=== PATIENT | male | born 1935 | race Caucasian/White ===

== ENCOUNTER 2016-04-27 17:02 | Inpatient (IN) | payer MEDICARE, OTHER ==
[2016-04-27] MEDS ORDERED: ACETAMINOPHEN 325 MG TABLET PO PRN (17:26)
[2016-04-27] MEDS ORDERED: ZOLPIDEM TARTRATE 5 MG TABLET PO PRN (17:26)
[2016-04-27] MEDS ORDERED: MAG-AL PLUS XS SUSP 30 ML UDC PO PRN (17:26)
[2016-04-27] MEDS: VANCOMYCIN PO SCH ×2 (18:39→22:12)
[2016-04-27] MEDS: POTASSIUM CHLORIDE/NS 1,000 ML IV SCH (18:39)
[2016-04-27] MEDS ORDERED: WATER IRRIG 1,000 ML BOTTLE ONE (18:52)
[2016-04-27] MEDS ORDERED: VANCOMYCIN HCL 1,000 MG/20 ML VIAL ONE (18:52)
--- NOTE | 2016-04-28 05:41 | HISTORY & PHYSICAL ---
DATE OF ADMISSION: 04/27/16 ADMITTING DIAGNOSIS: Diarrhea, intractable, with dehydration. HISTORY OF PRESENT ILLNESS: The patient is a 80-year-old male, with a recent history of Campylobacter infection. His problems began in March of 2016 when he had acute sinusitis treated with Augmentin. He came to the office on with frequent diarrhea and was thought to possibly have Clostridium difficile diarrhea, but in fact turned out to have fecal leukocytes and Campylobacter. He was treated with ciprofloxacin for 5 days, because I was concerned about the potential for further inducing risk of Clostridium difficile with another antibiotic, I also treated him with Flagyl 3 times daily for 5 days. He returned to the office today with complaints of 10-12 times daily diarrhea for the past few days, with abdominal pain only when about to pass a bowel movement. He was slightly nauseated and had malaise and was unable to eat and drink. Laboratory studies were obtained from the clinic and he was found to have a white count of 22,000, and to appear dehydrated therefore he was admitted for hydration and a stool sample was obtained. Stool sample results have returned for Clostridium difficile and indeed he now does have that. He has had no blood in the stool and overall has been functioning fairly well. ALLERGIES: None known. PAST MEDICAL HISTORY 1. GERD. 2. Hypertension. 3. History of colon polyps. 4. History of prostate cancer status post robotic prostatectomy with subsequent increase in his PSA. 5. Osteoarthritis. 6. Hyperlipidemia. MEDICATIONS AT HOME Aleve 220 mg 2 daily in the morning. Aspirin 81 mg daily. Atorvastatin 20 mg at h.s. CoQ10 100 mg q.o.d. Fish oil 1200 mg every other day. Quinapril hydrochlorothiazide 20/25 mg daily. Vitamin D 1000 IU daily. SOCIAL HISTORY: He is . 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 He has 3 grown children. He is a former pipe smoker who quit 25 years ago. He rarely drinks any alcohol. FAMILY HISTORY: Father at 78 with an AR. Mother at 84 with a history of breast cancer. Sister is in a correction at age 84 with dementia. He has a son with hypertension. REVIEW OF SYSTEMS: Generally he feels fatigue and has malaise. No headaches, no blurred vision. His mouth is a little dry. No chest pain. No shortness of breath. No palpitations. Diarrhea and abdominal discomfort as described above. No neurological problems. PHYSICAL EXAMINATION VITAL SIGNS: Temperature 37, blood pressure 117/62, pulse 80, respirations 18. O2 saturation 95% on room air. GENERAL: The patient is alert, appears comfortable. HEENT: Extraocular movements are intact. Pupils are equal, round and reactive to light. Oropharynx is slightly dry. NECK: Reveals no jugular venous distention, no bruits, no adenopathy. LUNGS: Clear bilaterally. CARDIOVASCULAR: Regular rate and rhythm without murmurs, rubs or gallops appreciated. ABDOMEN: Soft, nontender. Bowel sounds hyperactive. No organomegaly. No masses noted. EXTREMITIES: Calves are soft. Dorsalis pedis pulses are 2+. NEUROLOGIC: He is well oriented. Cranial nerves intact. Motor strength 5/5. Deep tendon reflexes 1+ and symmetrical. Gait is normal. DATA: CBC shows a white count of 22,300 with a left shift, 92% neutrophils, hemoglobin 16, hematocrit 47. Chemistry is unremarkable including hepatic enzymes, amylase and lipase are normal. Stool is negative for occult blood, positive for fecal leuks, positive for Clostridium difficile by PCR. Other studies are pending at this time. ASSESSMENT AND PLAN 1. Clostridium difficile colitis, antibiotic induced. Since I have already treated him with Flagyl as a failed prophylactic measure, I am going to go straight to vancomycin oral liquid at 250 mg 4 times a day. The patient will continue on a BRAT diet and we will hydrate him. 2. Hypertension. The patients blood pressure has been low and we will resume his medications when his blood pressure gets to its normal levels. 3. Hyperlipidemia. Hold his atorvastatin for now. 4. DVT prophylaxis. Will use SCDs at this time and if the patients stay becomes more prolonged will start Lovenox. MICHAEL
[2016-04-28] MEDS: VANCOMYCIN PO SCH ×4 (05:55→21:39)
[2016-04-28 06:10] LABS: BASOPHIL# 0.3 X 10^3uL (0.0-0.1); BASOPHILS 1.5 % (0.0-2.0); EOSINOPHILS 0.9 % (0.0-6.0); EOSINOPHILS# 0.2 X 10^3uL (0.0-0.4); HEMATOCRIT 42.8 % (42.0-54.0); HEMOGLOBIN 14.2 g/dL (14.0-18.0); LYMPHOCYTES 3.7 % (20.0-40.0); LYMPHOCYTES# 0.7 X 10^3uL (0.8-3.8); MEAN CORPUS. HGB CONCENTRATION 33.2 g/dL (32.0-36.0); MEAN CORPUSCULAR HEMOGLOBIN 29.9 pg (29.0-35.0); MEAN PLATELET VOLUME 8.4 fL (7.4-10.4); MONOCYTES 6.7 % (2.0-10.0); MONOCYTES# 1.2 X 10^3uL (0.2-1.0); NEUTROPHILS# 15.6 X 10^3uL (2.6-6.7); PLATELET COUNT 340 X 10^3uL (130-440); RED BLOOD COUNT 4.75 X 10^6uL (4.20-6.10); RED CELL DISTRIBUTION WIDTH 12.8 % (11.5-14.5)
[2016-04-28 06:25] LABS: ALBUMIN 3.1 g/dL (3.5-5.0); ALKALINE PHOSPHATASE 53 U/L (38-126); ALT 36 U/L (21-72); AST 21 U/L (17-59); BILIRUBIN, DIRECT 0.1 mg/dL (0.0-0.4); BILIRUBIN, TOTAL 0.9 mg/dL (0.2-1.3); BLOOD UREA NITROGEN 17 mg/dL (9-20); CALCIUM 8.3 mg/dL (8.4-10.2); CHLORIDE 106 mmol/L (98-107); CREATININE 0.9 mg/dL (0.7-1.3); EST GLOMERULAR FILTRATION RATE > 60 mL/min; GLUCOSE 110 mg/dL (70-100); POTASSIUM 3.9 mmol/L (3.5-5.1); SODIUM 136 mmol/L (137-145); TOTAL PROTEIN 5.7 g/dL (6.3-8.2)
[2016-04-28 06:29] LABS: NEUTROPHILS 87.2 % (54.0-75.0)
[2016-04-28] MEDS: POTASSIUM CHLORIDE/NS 1,000 ML IV SCH (09:54)
--- NOTE | 2016-04-28 10:05 | PROGRESS NOTE: IM APSO ---
Assessment and Plan - Date of Encounter Date of Encounter: 04/28/16 (1) Clostridium difficile colitis Status: Acute Assessment and plan: Antibiotic induced. Patient was treated with Augmentin in March for sinusitis. In April he developed diarrhea with campylobacter positivity, and was treated with Cipro AND Metronidazole, because of concerns for potential C. Difficile colitis. Stool testing for C. Difficile was negative at that time. Since he has developed C. Difficile diarrhea in spite of that effort, he was started on oral Vancomycin immediately, and not Metronidazole. Patient has an elevated WBC, and continues to have diarrhea. I spoke with Dr. Ruiz of GI who agrees with current effort. Current Visit: Yes (2) Campylobacter antigen positive Status: Acute Assessment and plan: This is concerning after the patient was already treated with Ciprofloxacin. Discussed with Dr. Ruiz of GI, and Azithromycin was started this morning. Continue efforts with hydration. Source of Campylobacter unknown. Current Visit: Yes (3) Hypertension Status: Chronic Assessment and plan: Patient's medications are being held due to dehydration, and his blood pressure is thus far controlled. Current Visit: Yes - Time Spent With Patient Total time spent with greater than 50% in coordination of care (as documented) at patient's floor/unit and/or counseling patient: 16-24 minutes Estimated anticipated discharge: Several days. IM: PN Subjective Interval history: Continues to have severe diarrhea, and is fatigued. Of concern is that he is still testing positive for Campylobacter, as well as C. Difficile, in spite of treatment with Ciprofloxacin last week, for 5 days. Initially, his diarrhea cleared with that treatment. No fever or chills. Patient is receiving IVF because of diarrhea, and is eating a BRAT diet. General: fatigue, malaise, no fever, no chills HEENT: no headache Cardiovascular: no chest pain Respiratory: no SOB Gastrointestinal: abdominal pain (only cramping with BM), diarrhea Genitourinary: no dysuria Musculoskeletal: no pain IM: PN Objective Exam - I&O/Vital Signs I&O: Intake & Output 04/27/16 04/28/16 04/28/16 21:59 05:59 13:59 Intake Total 1050 Balance 1050 Weight 74.843 kg Intake: IV 650 Right Antecubital 650 Oral 400 Other: Stool Size Moderate Stool Characteristics Soft Soft Liquid Liquid Voiding Method Toilet # Bowel Movements 6 Vital Signs: Last Vital Signs Temp 36.6 C 04/28/16 07:00 Pulse 82 04/28/16 07:00 Resp 16 04/28/16 07:00 BP 112/69 04/28/16 07:00 Pulse Ox 94 04/28/16 07:00 Oxygen Delivery Method Room Air - Constitutional General appearance: Present: average body habitus - Head Head exam: Present: normal inspection - Eye Eye exam: Absent: conjunctival injection, scleral icterus Pupils: Present: PERRL - ENT ENT exam: Present: mucous membranes moist - Neck Neck exam: Present: full ROM - Respiratory Respiratory exam: Present: CTAB - Cardiovascular Cardiovascular exam: Present: RRR - GI/Abdominal GI/Abdominal exam: Present: hyperactive bowel sounds, soft. Absent: organomegaly, tenderness - Extremities Exam Extremities exam: Absent: calf tenderness, edema, tenderness - Neurological Exam Neurological exam: Present: CN II-XII intact, oriented X3 - Lab Labs: Laboratory Last Values WBC 18.0 X 10^3uL (3.9-10.7) H 04/28/16 05:00 RBC 4.75 X 10^6uL (4.20-6.10) 04/28/16 05:00 Hgb 14.2 g/dL (14.0-18.0) 04/28/16 05:00 Hct 42.8 % (42.0-54.0) 04/28/16 05:00 MCV 90.0 fL (84.0-102.0) 04/28/16 05:00 MCH 29.9 pg (29.0-35.0) 04/28/16 05:00 MCHC 33.2 g/dL (32.0-36.0) 04/28/16 05:00 RDW 12.8 % (11.5-14.5) 04/28/16 05:00 Plt Count 340 X 10^3uL (130-440) 04/28/16 05:00 MPV 8.4 fL (7.4-10.4) 04/28/16 05:00 Neutrophils % 87.2 % (54.0-75.0) H 04/28/16 05:00 Lymphocytes % 3.7 % (20.0-40.0) L 04/28/16 05:00 Eosinophils % 0.9 % (0.0-6.0) 04/28/16 05:00 Basophils % 1.5 % (0.0-2.0) 04/28/16 05:00 Neutrophils # 15.6 X 10^3uL (2.6-6.7) H 04/28/16 05:00 Lymphocytes # 0.7 X 10^3uL (0.8-3.8) L 04/28/16 05:00 Monocytes 6.7 % (2.0-10.0) 04/28/16 05:00 Monocytes # 1.2 X 10^3uL (0.2-1.0) H 04/28/16 05:00 Eosinophils # 0.2 X 10^3uL (0.0-0.4) 04/28/16 05:00 Basophils # 0.3 X 10^3uL (0.0-0.1) H 04/28/16 05:00 Sodium 136 mmol/L (137-145) L 04/28/16 05:00 Potassium 3.9 mmol/L (3.5-5.1) 04/28/16 05:00 Chloride 106 mmol/L (98-107) 04/28/16 05:00 Carbon Dioxide 23 mmol/L (22-30) 04/28/16 05:00 BUN 17 mg/dL (9-20) 04/28/16 05:00 Creatinine 0.9 mg/dL (0.7-1.3) 04/28/16 05:00 GFR Calculation > 60 mL/min 04/28/16 05:00 Glucose 110 mg/dL (70-100) H 04/28/16 05:00 Calcium 8.3 mg/dL (8.4-10.2) L 04/28/16 05:00 Total Bilirubin 0.9 mg/dL (0.2-1.3) 04/28/16 05:00 Direct Bilirubin 0.1 mg/dL (0.0-0.4) 04/28/16 05:00 AST 21 U/L (17-59) 04/28/16 05:00 ALT 36 U/L (21-72) 04/28/16 05:00 Alkaline Phosphatase 53 U/L (38-126) 04/28/16 05:00 Total Protein 5.7 g/dL (6.3-8.2) L 04/28/16 05:00 Albumin 3.1 g/dL (3.5-5.0) L D 04/28/16 05:00 Quality Questions - VTE Prophylaxis Assessment VTE Present on Admission?: No Patient at risk for venous thromboembolism?: Yes VTE Risk Level: High Risk VTE Medical Contraindication: N/A-VTE Prophylaxis ordered (3) Hypertension Qualifiers: Hypertension type: essential hypertension Qualified Code(s): I10 - Essential (primary) hypertension
[2016-04-28] MEDS: AZITHROMYCIN 250 MG TABLET PO SCH (11:17)
[2016-04-29] MEDS ORDERED: VANCOMYCIN PO SCH
[2016-04-29] MEDS: VANCOMYCIN PO SCH ×4 (05:35→21:07)
[2016-04-29 06:28] LABS: BASOPHILS 0.4 % (0.0-2.0); EOSINOPHILS 2.5 % (0.0-6.0); EOSINOPHILS# 0.3 X 10^3uL (0.0-0.4); HEMATOCRIT 40.7 % (42.0-54.0); HEMOGLOBIN 13.3 g/dL (14.0-18.0); LYMPHOCYTES 6.6 % (20.0-40.0); LYMPHOCYTES# 0.8 X 10^3uL (0.8-3.8); MEAN CORPUS. HGB CONCENTRATION 32.6 g/dL (32.0-36.0); MEAN PLATELET VOLUME 8.7 fL (7.4-10.4); MONOCYTES 8.9 % (2.0-10.0); NEUTROPHILS 81.6 % (54.0-75.0); NEUTROPHILS# 9.4 X 10^3uL (2.6-6.7); PLATELET COUNT 318 X 10^3uL (130-440); RED BLOOD COUNT 4.43 X 10^6uL (4.20-6.10); RED CELL DISTRIBUTION WIDTH 12.9 % (11.5-14.5); WHITE BLOOD COUNT 11.5 X 10^3uL (3.9-10.7)
[2016-04-29 06:33] LABS: A/G RATIO 1.1; ALBUMIN 2.7 g/dL (3.5-5.0); ALKALINE PHOSPHATASE 45 U/L (38-126); ALT 31 U/L (21-72); AST 15 U/L (17-59); BILIRUBIN, TOTAL 0.6 mg/dL (0.2-1.3); BLOOD UREA NITROGEN 13 mg/dL (9-20); CALCIUM 8.3 mg/dL (8.4-10.2); CHLORIDE 109 mmol/L (98-107); CREATININE 0.9 mg/dL (0.7-1.3); EST GLOMERULAR FILTRATION RATE > 60 mL/min; GLUCOSE 88 mg/dL (70-100); POTASSIUM 3.9 mmol/L (3.5-5.1); SODIUM 138 mmol/L (137-145); TOTAL PROTEIN 5.2 g/dL (6.3-8.2)
[2016-04-29] MEDS: AZITHROMYCIN 250 MG TABLET PO SCH (09:33)
--- NOTE | 2016-04-29 09:47 | PROGRESS NOTE: IM APSO ---
Assessment and Plan - Date of Encounter Date of Encounter: 04/29/16 (1) Clostridium difficile colitis Status: Acute Assessment and plan: Seems to be improving, stools are formed, elevation in WBC is decreasing. Patient may be able to go home on his Vancomycin preparation in the next day or so. Current Visit: Yes (2) Campylobacter antigen positive Status: Acute Assessment and plan: Seems to be responding to the Azithromycin, patient is feeling better. Current Visit: Yes (3) Hypertension Status: Chronic Assessment and plan: Remains controlled. Current Visit: Yes - Time Spent With Patient Total time spent with greater than 50% in coordination of care (as documented) at patient's floor/unit and/or counseling patient: 16-24 minutes Estimated anticipated discharge: Several days. IM: PN Subjective Interval history: Patient feels better today. Still with frequent diarrhea, but not as watery. No fever or chills, WBC now decreased to 11,500. General: no fever, no chills HEENT: no headache Cardiovascular: no chest pain Respiratory: no SOB Gastrointestinal: abdominal pain (only cramping with BM), diarrhea Genitourinary: no dysuria Musculoskeletal: no pain IM: PN Objective Exam - I&O/Vital Signs I&O: Intake & Output 04/28/16 04/29/16 04/29/16 21:59 05:59 13:59 Intake Total 1400 300 Output Total 100 200 Balance 1300 100 Intake: IV 900 Left Forearm 900 Oral 500 300 Output: Urine 100 200 Other: Urine Appearance Clear Clear Urine Color Yellow Yellow Stool Size Moderate Stool Characteristics Soft Liquid Voiding Method Toilet Urinal # Voids 5 5 # Bowel Movements 5 Vital Signs: Last Vital Signs Temp 36.6 C 04/29/16 07:00 Pulse 70 04/29/16 07:00 Resp 14 04/29/16 07:00 BP 112/62 04/29/16 07:00 Pulse Ox 94 04/29/16 07:00 Oxygen Delivery Method Room Air - Constitutional General appearance: Present: average body habitus - Head Head exam: Present: normal inspection - Eye Eye exam: Absent: conjunctival injection, scleral icterus Pupils: Present: PERRL - ENT ENT exam: Present: mucous membranes moist - Neck Neck exam: Present: full ROM - Respiratory Respiratory exam: Present: CTAB - Cardiovascular Cardiovascular exam: Present: RRR - GI/Abdominal GI/Abdominal exam: Present: normal bowel sounds, soft. Absent: organomegaly, tenderness - Extremities Exam Extremities exam: Absent: calf tenderness, edema, tenderness - Neurological Exam Neurological exam: Present: CN II-XII intact, oriented X3 - Allied Health Notes Allied health notes reviewed: nursing - Lab Labs: Laboratory Last Values WBC 11.5 X 10^3uL (3.9-10.7) H 04/29/16 05:35 RBC 4.43 X 10^6uL (4.20-6.10) 04/29/16 05:35 Hgb 13.3 g/dL (14.0-18.0) L 04/29/16 05:35 Hct 40.7 % (42.0-54.0) L 04/29/16 05:35 MCV 92.0 fL (80.0-100.0) 04/29/16 05:35 MCH 30.0 pg (29.0-35.0) 04/29/16 05:35 MCHC 32.6 g/dL (32.0-36.0) 04/29/16 05:35 RDW 12.9 % (11.5-14.5) 04/29/16 05:35 Plt Count 318 X 10^3uL (130-440) 04/29/16 05:35 MPV 8.7 fL (7.4-10.4) 04/29/16 05:35 Neutrophils % 81.6 % (54.0-75.0) H 04/29/16 05:35 Lymphocytes % 6.6 % (20.0-40.0) L 04/29/16 05:35 Eosinophils % 2.5 % (0.0-6.0) 04/29/16 05:35 Basophils % 0.4 % (0.0-2.0) 04/29/16 05:35 Neutrophils # 9.4 X 10^3uL (2.6-6.7) H 04/29/16 05:35 Lymphocytes # 0.8 X 10^3uL (0.8-3.8) 04/29/16 05:35 Monocytes 8.9 % (2.0-10.0) 04/29/16 05:35 Monocytes # 1.0 X 10^3uL (0.2-1.0) 04/29/16 05:35 Eosinophils # 0.3 X 10^3uL (0.0-0.4) 04/29/16 05:35 Basophils # 0.0 X 10^3uL (0.0-0.1) 04/29/16 05:35 Sodium 138 mmol/L (137-145) 04/29/16 05:35 Potassium 3.9 mmol/L (3.5-5.1) 04/29/16 05:35 Chloride 109 mmol/L (98-107) H 04/29/16 05:35 Carbon Dioxide 24 mmol/L (22-30) 04/29/16 05:35 BUN 13 mg/dL (9-20) 04/29/16 05:35 Creatinine 0.9 mg/dL (0.7-1.3) 04/29/16 05:35 GFR Calculation > 60 mL/min 04/29/16 05:35 Glucose 88 mg/dL (70-100) 04/29/16 05:35 Calcium 8.3 mg/dL (8.4-10.2) L 04/29/16 05:35 Magnesium 2.0 mg/dL (1.6-2.3) 04/29/16 05:35 Total Bilirubin 0.6 mg/dL (0.2-1.3) 04/29/16 05:35 Direct Bilirubin 0.1 mg/dL (0.0-0.4) 04/28/16 05:00 AST 15 U/L (17-59) L 04/29/16 05:35 ALT 31 U/L (21-72) 04/29/16 05:35 Alkaline Phosphatase 45 U/L (38-126) 04/29/16 05:35 Total Protein 5.2 g/dL (6.3-8.2) L 04/29/16 05:35 Albumin 2.7 g/dL (3.5-5.0) L 04/29/16 05:35 Albumin/Globulin Ratio 1.1 04/29/16 05:35 (3) Hypertension Qualifiers: Hypertension type: essential hypertension Qualified Code(s): I10 - Essential (primary) hypertension
[2016-04-29] MEDS: POTASSIUM CHLORIDE/NS 1,000 ML IV SCH (16:26)
--- NOTE | 2016-04-29 16:51 | DC SUMMARY: IM Note ---
Discharge Summary: IM/Peds Provider: Date of Admission: 04/27/16 Admitting Provider: CLAIRE NJ MD Attending Provider: CLAIRE NJ MD Discharging Provider: CLAIRE NJ MD Primary Care Provider: Discharge Date: 04/29/16 - Diagnosis (1) Clostridium difficile colitis Status: Acute (2) Campylobacter antigen positive Status: Acute (3) Hypertension Status: Chronic Qualifiers: Hypertension type: essential hypertension Qualified Code(s): I10 - Essential (primary) hypertension Hospital Course: Patient was admitted from the clinic with multiple times per day diarrhea and a WBC of 22,000, with stool sample testing from the clinic positive for C. Difficile Toxin. Later on the day of admission laboratory studies confirmed a positive Campylobacter assay. The patient had been treated for Campylobacter about 10 days prior, with Ciprofloxacin for 5 days, to which Flagyl had been added in the (futile) hope of avoiding C. Difficile diarrhea. Since the Campylobacter had not cleared, I spoke with Dr. Ruiz of GI, and he advised that we retreat. Azithromycin was chosen. By the day of discharge, patient was feeling much better, and his white blood cell count was normalized. His stools had become formed, and frequency much reduced. He was discharged on a bland diet, and I discussed with him the avoidance of dairy, citrus, caffeine and red meat until feeling better, with gradual reintroduction of all foods as he tolerates them. - Time Spent with Patient Total time spent providing and/or coordinating discharge services: Time with patient DS: Greater than 30 minutes Discharge - Patient/Caregiver Discharge Instructions Activity Level: As tolerated Diet: [place], avoid heavy meals, limit citrus, caffeine, dairy and red meat until feeling normal. Follow up: CLAIRE NJ MD [Primary Care Provider] - 05/06/16 3:15 pm Overall discharge status: patient is progressing back to baseline Home Medications: Azithromycin 500 mg PO DAILY #4 tab Vancomycin Oral Soln [Vancocin HCl] 250 mg PO 0600,1200,1700,2200 #40 ea Vancomycin Oral Soln [Vancocin HCl] 250 mg PO QID #40 ea Azithromycin [Zithromax*] 500 mg PO DAILY #4 tablet Disposition: HOME, SELF-CARE Discharge Summary Data - Medication History Medication History: Home Medications Atorvastatin Calcium [Lipitor] 20 mg PO DAILY 04/28/16 Co Q-10 [Co Q-10 50 mg Softgel] 100 mg PO DAILY 04/28/16 [place]-3 Fatty Acids/Fish Oil [Fish Oil 1,000 mg Softgel] 1 cap PO DAILY Quinapril/Hydrochlorothiazide [Quinapril-Hctz 20-25 mg Tab] 1 tab PO DAILY 04/28 aspirin EC [Aspirin EC*] 81 mg PO DAILY 04/28/16 Inpatient Medications 04/27/16 17:26 Acetaminophen [Tylenol] 650 mg PO Q6H PRN Mag-Al Plus Xs Susp [Maalox Liquid] 30 ml PO Q4H PRN Zolpidem Tartrate [Ambien] 5 mg PO HS PRN 04/27/16 18:00 Potassium Chloride/Ns [KCl 20 Meq in Ns 1L] 1,000 ml IV CONT 04/27/16 22:00 Vancomycin Oral Soln [Vancocin HCl] 250 mg PO 0600,1200,1700,2200 04/28/16 09:00 aspirin EC [Ecotrin 81 mg] 81 mg PO DAILY 04/28/16 11:00 Azithromycin [Zithromax] 500 mg PO DAILY 04/29/16 00:00 Vancomycin Oral Soln [Vancocin HCl] 250 mg PO QID Procedures and tests throughout hospitalization: Completed Lab Orders 04/28/16 05:00 BASIC METABOLIC PANEL [CHEM] AMDRAW CBC AUTO DIF, MDIF/RMOR IF IND [HEM] AMDRAW HEPATIC PANEL [CHEM] AMDRAW 04/29/16 05:35 CBC AUTO DIF, MDIF/RMOR IF IND [HEM] AMDRAW MAGNESIUM [CHEM] AMDRAW cmp [COMPREHENSIVE METABOLIC PANEL] [CHEM] AMDRAW Pending Orders 04/27/16 17:26 Admit: Observation Routine Activity: Bathroom Privileges . Assess pulse oximetry ROOM AIR (DAILY) Intake and Output QSHIFT I&O Resuscitation Status Routine Sequential Compression Device WHILE IN BED Vital Signs ROUTINE VITALS (Q4H) Acetaminophen [Tylenol] 650 mg PO Q6H PRN Mag-Al Plus Xs Susp [Maalox Liquid] 30 ml PO Q4H PRN Zolpidem Tartrate [Ambien] 5 mg PO HS PRN 04/27/16 17:29 VTE Prophylaxis Scoring/ Ordering Routine 04/27/16 18:00 Potassium Chloride/Ns [KCl 20 Meq in Ns 1L] 1,000 ml IV CONT 04/27/16 22:00 Vancomycin Oral Soln [Vancocin HCl] 250 mg PO 0600,1200,1700,2200 04/27/16 Dinner BRAT [DIET] 04/28/16 09:00 aspirin EC [Ecotrin 81 mg] 81 mg PO DAILY 04/28/16 11:00 Azithromycin [Zithromax] 500 mg PO DAILY 04/28/16 12:24 Change from Observation to Inpatient Routine 04/29/16 00:00 Vancomycin Oral Soln [Vancocin HCl] 250 mg PO QID 04/29/16 09:47 Miscellaneous Care Order . 04/30/16 05:00 BMP [BASIC METABOLIC PANEL] [CHEM] AMDRAW CBC AUTO DIF, MDIF/RMOR IF IND [HEM] AMDRAW Labs on day of discharge: Labs from last 24 hours 04/29/16 05:35 WBC 11.5 H RBC 4.43 Hgb 13.3 L Hct 40.7 L MCV 92.0 MCH 30.0 MCHC 32.6 RDW 12.9 Plt Count 318 MPV 8.7 Neutrophils % 81.6 H Lymphocytes % 6.6 L Eosinophils % 2.5 Basophils % 0.4 Neutrophils # 9.4 H Lymphocytes # 0.8 Monocytes 8.9 Monocytes # 1.0 Eosinophils # 0.3 Basophils # 0.0 Sodium 138 Potassium 3.9 Chloride 109 H Carbon Dioxide 24 BUN 13 Creatinine 0.9 GFR Calculation > 60 Glucose 88 Calcium 8.3 L Magnesium 2.0 Total Bilirubin 0.6 AST 15 L ALT 31 Alkaline Phosphatase 45 Total Protein 5.2 L Albumin 2.7 L Albumin/Globulin Ratio 1.1 IM: Discharge Physical Exam - I&O/Vital Signs I&O: Intake & Output 04/29/16 04/29/16 04/29/16 05:59 13:59 21:59 Intake Total 300 Output Total 200 Balance 100 Intake: Oral 300 Output: Urine 200 Other: Urine Appearance Clear Clear Urine Color Yellow Yellow Stool Size Moderate Stool Characteristics Soft Liquid Voiding Method Urinal Urinal # Voids 5 Vital Signs: Last Vital Signs Temp 36.7 C 04/29/16 15:00 Pulse 69 04/29/16 15:00 Resp 16 04/29/16 15:00 BP 106/64 04/29/16 15:00 Pulse Ox 95 04/29/16 15:00 Oxygen Delivery Method Room Air - Constitutional General appearance: Present: average body habitus - Head Head exam: Present: normal inspection - Eye Eye exam: Absent: conjunctival injection, scleral icterus Pupils: Present: PERRL - ENT ENT exam: Present: mucous membranes moist - Neck Neck exam: Present: full ROM - Respiratory Respiratory exam: Present: CTAB - Cardiovascular Cardiovascular exam: Present: RRR - GI/Abdominal GI/Abdominal exam: Present: normal bowel sounds, soft. Absent: organomegaly, tenderness - Extremities Exam Extremities exam: Absent: calf tenderness, edema, tenderness - Neurological Exam Neurological exam: Present: CN II-XII intact, oriented X3 - Allied Health Notes Allied health notes reviewed: nursing
[2016-04-30] MEDS: VANCOMYCIN PO SCH ×2 (06:13→11:46)
[2016-04-30 07:36] LABS: BASOPHIL# 0.1 X 10^3uL (0.0-0.1); BASOPHILS 0.8 % (0.0-2.0); EOSINOPHILS 4.7 % (0.0-6.0); EOSINOPHILS# 0.4 X 10^3uL (0.0-0.4); HEMATOCRIT 40.1 % (42.0-54.0); HEMOGLOBIN 13.4 g/dL (14.0-18.0); LYMPHOCYTES 8.3 % (20.0-40.0); LYMPHOCYTES# 0.6 X 10^3uL (0.8-3.8); MEAN CELL VOLUME 91.8 fL (80.0-100.0); MEAN CORPUS. HGB CONCENTRATION 33.3 g/dL (32.0-36.0); MEAN CORPUSCULAR HEMOGLOBIN 30.5 pg (29.0-35.0); MEAN PLATELET VOLUME 8.3 fL (7.4-10.4); MONOCYTES 7.1 % (2.0-10.0); MONOCYTES# 0.5 X 10^3uL (0.2-1.0); PLATELET COUNT 339 X 10^3uL (130-440); RED BLOOD COUNT 4.37 X 10^6uL (4.20-6.10); RED CELL DISTRIBUTION WIDTH 12.8 % (11.5-14.5); WHITE BLOOD COUNT 7.6 X 10^3uL (3.9-10.7)
[2016-04-30 07:41] VITALS: BP 111/59; PULSE 72; RESP 16; TEMP 98; O2SAT 96
[2016-04-30] MEDS: AZITHROMYCIN 250 MG TABLET PO SCH (08:10)
[2016-04-30 08:42] LABS: NEUTROPHILS 79.1 % (54.0-75.0)
[2016-04-30 08:50] LABS: BLOOD UREA NITROGEN 10 mg/dL (9-20); CALCIUM 8.4 mg/dL (8.4-10.2); CHLORIDE 109 mmol/L (98-107); CREATININE 0.9 mg/dL (0.7-1.3); EST GLOMERULAR FILTRATION RATE > 60 mL/min; GLUCOSE 97 mg/dL (70-100); POTASSIUM 4.3 mmol/L (3.5-5.1); SODIUM 138 mmol/L (137-145)
== END 2016-04-30 10:45 | disposition home or self-care (01) | DRG 373 ==
LOC: IN 17:06 → OBSVTOIN 17:26
PROVIDERS: ADMIT Internal Medicine; ATTEND Internal Medicine
DX: A04.5 Campylobacter enteritis (principal); A04.7 Enterocolitis due to Clostridium difficile; E86.0 Dehydration; K21.9 Gastro-esophageal reflux disease without esophagitis; I10 Essential (primary) hypertension; E78.5 Hyperlipidemia, unspecified; Z85.46 Personal history of malignant neoplasm of prostate; M15.9 Polyosteoarthritis, unspecified; Z86.010 Personal history of colon polyps; Z79.899 Other long term (current) drug therapy
CPT/HCPCS: 36415; 80048; 80053; 80076; 83735; 85025; 96360; 96361; A4217; G0379; J3370; J3480; Q0144